=== PATIENT | female | born 2000 | race Caucasian/White ===

== ENCOUNTER 2021-11-25 23:51 | Observation (INO) | payer OTHER ==
[~2021-11-25] VITALS: Ht 170.2 cm; Wt 98.4 kg
[2021-11-26 03:15] LABS: CLARITY URINE CLEAR (CLEAR); COLOR URINE YELLOW (YELLOW); KETONES URINE NEGATIVE (NEGATIVE); LEUKOCYTE ESTERASE URINE 2+ (NEGATIVE); NITRITE URINE NEGATIVE (NEGATIVE); OCCULT BLOOD URINE NEGATIVE (NEGATIVE); PH URINE 6.5 (4.5-8.0); PROTEIN URINE NEGATIVE (NEGATIVE); SPECIFIC GRAVITY URINE 1.016 (1.005-1.030); UROBILINOGEN URINE 0.2 E.U./dL (0.2-1.0)
[2021-11-26] MEDS: LACTATED RINGERS 1,000 ML IV SCH ×2 (04:03→05:09)
[2021-11-26] MEDS ORDERED: TERBUTALINE SULFATE 1MG/ML VIAL SUBCUT PRN (05:45)
[2021-11-26 06:54] LABS: BASOPHILS % 0.5 % (0.0-2.0); EOSINOPHILS % 1.5 % (0.0-5.0); HEMATOCRIT. 30.9 % (36.0-48.0); LYMPHOCYTES % 14.7 % (20.0-50.0); MEAN CORPUSCULAR HEMOGLOBIN 25.3 pg (28.0-32.0); MEAN CORPUSCULAR VOLUME 77.8 fL (81.0-99.0); MEAN PLATELET VOLUME 8.2 fl (7.4-10.4); MONOCYTES % 8.8 % (2.0-8.0); NEUTROPHILS % 74.5 % (40.0-76.0); PLATELET 291 x1000/uL (130-400); RED BLOOD CELL COUNT 3.97 mill/uL (4.2-5.4); RED CELL DISTRIBUTION WIDTH 24.1 % (11.6-14.6)
[2021-11-26 07:50] LABS: PLATELET ESTIMATE NORMAL
[2021-11-26] MEDS ORDERED: PNV1TABL76 MT (08:36)
[2022-01-15] MEDS ORDERED: IBUP-2028 PO (08:04)
== END 2021-11-26 09:20 | disposition home or self-care (01) ==
LOC: 8 EST LDRP 23:51
PROVIDERS: ADMIT Obstetrics & Gynecology; ATTEND Obstetrics & Gynecology
DX: O62.9 Abnormality of forces of labor, unspecified (principal); O26.893 Other specified pregnancy related conditions, third trimester; R10.30 Lower abdominal pain, unspecified; Z3A.33 33 weeks gestation of pregnancy
CPT/HCPCS: 36415; 59025; 76805; 76818; 81003; 82731; 85025; 87086; 96360; 96361; 96372; G0378; J3105; 96365; 99281; G0379

== ENCOUNTER 2021-12-07 15:36 | Observation (INO) | payer OTHER ==
[~2021-12-07] VITALS: Ht 170.2 cm; Wt 99.8 kg
[~2021-12-07 15:36] MED LIST: PNV1TABL76 MT
[2022-01-15] MEDS ORDERED: IBUP-2028 PO (08:04)
== END 2021-12-07 16:10 | disposition home or self-care (01) ==
LOC: 8 EST LDRP 15:36
PROVIDERS: ADMIT Obstetrics & Gynecology; ATTEND Obstetrics & Gynecology
DX: O62.9 Abnormality of forces of labor, unspecified (principal); Z3A.35 35 weeks gestation of pregnancy
CPT/HCPCS: 59025; 99281; G0378

== ENCOUNTER 2021-12-27 22:58 | Observation (INO) | payer OTHER, MEDICAID ==
[~2021-12-27] VITALS: Ht 170.2 cm; Wt 99.8 kg
[2021-12-28] MEDS ORDERED: FERR-71 PO (02:04)
[2022-01-15] MEDS ORDERED: IBUP-2028 PO (08:04)
== END 2021-12-28 02:30 | disposition home or self-care (01) ==
LOC: 8 EST LDRP 22:58
PROVIDERS: ADMIT Obstetrics & Gynecology; ATTEND Obstetrics & Gynecology
DX: O26.893 Other specified pregnancy related conditions, third trimester (principal); R10.30 Lower abdominal pain, unspecified; O62.9 Abnormality of forces of labor, unspecified; Z3A.37 37 weeks gestation of pregnancy
CPT/HCPCS: 59025; 99281; G0378